=== PATIENT | male | born 1960 | race Caucasian/White ===

== ENCOUNTER 2024-02-23 14:43 | Emergency (ER) | payer MEDICARE, MEDICAID, SELFPAY ==
--- NOTE | 2024-02-23 14:48 | ED_ITS ---
HPI - Anxiety General Chief Complaint: Anxiety Stated Complaint: Anxiety attack Related Data Allergies Allergy/AdvReac Type Severity Reaction Status Date / Time meperidine [From Demerol] Allergy Unknown Verified 02/23/24 14:52 prochlorperazine Allergy Unknown Verified 02/23/24 14:52 [From Compazine] quetiapine [From Seroquel] AdvReac Anxiety Verified 02/23/24 14:52 [facility] Social History Social History Advance Directives: No Advance Directives Information Provided: No Physical Exam Vital Signs: Vital Signs: Last Vital Signs Temp 97.5 F 02/23/24 14:49 Pulse 81 02/23/24 14:49 Resp 20 02/23/24 14:49 BP 154/100 H 02/23/24 14:49 Pulse Ox 97 02/23/24 14:49 O2 Del Method Room Air 02/23/24 14:49 BMI result Body Mass Index 38.7 Course Course Course Narrative: This is a Rapid Medical Exam performed in triage by [place] Woods PA-C. Full HPI, ROS and PE to be performed by primary ED provider. 63-year-old male with past medical history anxiety, bipolar, [place]'s dz, c/o anxiety attack [employer]. Admits to taking Ativan 5mins [employer] w/o relief. reports nervousness & making me feel like Im going to bite my hands . denies CP/SOB PE: anxious Plan: Sx tx Discharge Plan Discharge Clinical Impression: Acute anxiety Patient Disposition: Left W/O Completing Treatment Discharge Date/Time: 02/23/24 16:26
[2024-02-23 14:49] VITALS: BP 154/100; PULSE 81; RESP 20; TEMP 36.4; O2SAT 97; BMI 38.7
== END 2024-02-23 16:26 | disposition left against medical advice (07) ==
PROVIDERS: Emergency Provider Emergency Medicine
DX: F41.9 Anxiety disorder, unspecified (principal)
CPT/HCPCS: 99281